=== PATIENT | female | born 2000 | race African-American/Black ===

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

== ENCOUNTER 2021-08-23 09:52 | Emergency (ER) | payer OTHER, MEDICAID ==
[~2021-08-23] VITALS: Ht 157.5 cm; Wt 45.4 kg
[~2021-08-23 09:52] MED LIST changes: +ERYTHROMYCIN E3.5 G2 OPHTHALMIC
[2021-08-23 14:02] LABS: HEMOGLOBIN 14.9 gm/dL (12.0-15.0); MCH 26.1 pg (26.0-34.0); MCHC 33.1 g/dL (28.0-37.0); MCV 78.8 fL (80.0-100.0); MPV 9.2 fl. (7.2-11.1); RBC 5.7 mil/uL (4.20-5.00); RDW-CV 14.9 % (10.5-14.5); WBC 3.2 thou/uL (4.0-11.0)
[2021-08-23 14:17] LABS: CREATININE 0.7 mg/dL (0.6-1.3)
[2021-08-23 14:19] LABS: POTASSIUM 2.9 mmol/L (3.5-5.1)
[2021-08-23] MEDS ORDERED: K-DUR10 MEQ PO (14:26)
[2021-08-23 14:36] VITALS: BP 144/70
--- NOTE | 2021-08-24 10:50 | EKG ---
[place] [address] ELECTROCARDIOGRAM REPORT Name: LUIS FISHER Room: [facility]#: [id number] Admission: 08/23/21 Attend Phys: Discharge: 08/23/21 Date of : 01 Date of Service: 08/23/21 1004 Report #: [id number] THIS REPORT FOR: //name// [facility] ED Test Date: 2021-08-23 Test Time: 10:04:42 Pat Name: LUIS FISHER Department: Room: Gender: F Porter Luggage: : 2000 Requested By: Nam Ang Order Number: [id number] MD: Blair Ely Measurements Intervals [place] Rate: 117 P: 89 [place]: 102 QRS: 69 QRSD: 75 T: -15 QT: 421 QTc: 588 Interpretive Statements Sinus tachycardia Right atrial enlargement Borderline repolarization abnormality Prolonged QT interval No previous ECG available for comparison Electronically Signed On 08-24-2021 10:50:30 [employer]BE[employer] by Blair Ely [email or web address] <ELECTRONICALLY SIGNED> By: Blair Ely MD, [facility] 08/24/21 1050 1004 1004 Blair Ely MD, [facility] /EPI
--- NOTE | 2021-08-26 10:59 | EKG ---
[place] [address] ELECTROCARDIOGRAM REPORT Name: LUIS FISHER [id number] Admission: 08/23/21 Attend Phys: Discharge: 08/23/21 Date of : 01 Date of Service: 08/23/21 1423 Report #: [id number] THIS REPORT FOR: //name// [facility] ED Test Date: 2021-08-23 Test Time: 14:23:29 Pat Name: LUIS FISHER Department: Room: Gender: Patient Partner: : 2000 Requested By: Nam Ang Order Number: [id number] MD: Blair Ely Measurements Intervals [place] Rate: 98 P: 80 [place]: 113 QRS: 79 QRSD: 90 T: 6 QT: 334 QTc: 427 Interpretive Statements Sinus rhythm Borderline short ND interval Right atrial enlargement Borderline T abnormalities, anterior leads Compared to ECG 08/23/2021 10:04:42 Sinus tachycardia no longer present Electronically Signed On 08-26-2021 10:59:10 [employer] by Blair Ely [email or web address] <ELECTRONICALLY SIGNED> By: Blair Ely MD, FAC 08/26/21 1059 1423 1423 Blair Ely MD, [facility] /EPI
== END 2021-08-23 14:36 | disposition home or self-care (01) ==
LOC: M.ERS 09:52
PROVIDERS: Physician Assistant
DX: E87.6 Hypokalemia (principal); R07.89 Other chest pain; R05.9 Cough, unspecified

== ENCOUNTER 2021-09-27 09:59 | Emergency (ER) | payer OTHER, MEDICAID ==
[~2021-09-27] VITALS: Ht 157.5 cm; Wt 49.9 kg
[~2021-09-27 09:59] MED LIST changes: +K-DUR10 MEQ PO
[2021-09-27] MEDS ORDERED: BUTALB-APAP-CA1 EACH PO (10:29)
[2021-09-27 10:37] VITALS: BP 114/89
== END 2021-09-27 10:37 | disposition home or self-care (01) ==
LOC: M.ERS 09:59
DX: R51.9 Headache, unspecified (principal)